=== PATIENT | male | born 1955 | race Caucasian/White ===

== ENCOUNTER → 2018-03-29 | Outpatient (CLI) | payer OTHER ==
--- NOTE | 2018-04-04 12:34 | SLEEPCENT ---
DATE OF PROCEDURE: 03/29/2018 ORDERED BY: Jaxson Gordon Nocturnal polysomnography was performed for the titration of pressure therapy in this patient with obstructive sleep apnea syndrome and apnea-hypopnea index of 31.1. For testing, a [employer] [place] View full face mask of medium size was used and 8 cm of water pressure was initially applied to the circuit and the lights were extinguished. 7 hours and 33 minutes of data were reviewed. There were 341 minutes of sleep identified. Sleep latency was short at 4.5 minutes. Rapid eye movement (REM) latency was short at 67 minutes. Sleep architecture initially showed fragmentation. Improvement was seen after optimal pressure was identified. Overall sleep efficiency was 77.2%. The electrocardiogram showed a sinus rhythm with an average heart rate of 60 beats per minute. Electroencephalogram (EEG) showed normal waveforms for awake and sleep. Respiratory events were best palliated with C-PAP at a pressure of +12. There was some limb activity, mostly early in the study, which did improve after optimal pressure was applied. Limb movement arousal index was 15.3. IMPRESSION: Obstructive sleep apnea syndrome (G47.33). RECOMMENDATION: Nightly use of pressure therapy at 12 cm of water.
== END ==
LOC: M SLEEP 19:21
PROVIDERS: ATTEND Physician Assistant
DX: G47.33 Obstructive sleep apnea (adult) (pediatric) (principal)

== ENCOUNTER 2018-12-19 10:37 | Emergency (ER) | payer OTHER ==
[~2018-12-19] VITALS: Ht 180.3 cm; Wt 94.6 kg
[2018-12-19] MEDS ORDERED: VITA-122 (10:42)
[2018-12-19] MEDS ORDERED: ATOR1TAB19 (10:42)
[2018-12-19] MEDS ORDERED: ASPI81TA85 PO (10:42)
[2018-12-19] MEDS ORDERED: TIZA4TAB4 (10:42)
[2018-12-19] MEDS ORDERED: TRAM50TA2 (10:42)
[2018-12-19 11:32] LABS: BASO % 0.2 % (0.0-1.0); EOS % 0.3 % (0.0-3.0); HEMATOCRIT 46.8 % (42.0-52.0); HEMOGLOBIN 15.3 g/dl (13.5-17.5); LYMPH # 1.2 10^3/uL (1.5-5.0); LYMPH % 9.9 % (24.0-44.0); MEAN CORPUSCULAR HEMOGLOBIN 29.8 pg (27.0-33.0); MEAN CORPUSCULAR HGB CONC 32.7 g/dl (32.0-36.5); MEAN CORPUSCULAR VOLUME 91.2 fl (80.0-96.0); MONO # 0.6 10^3/uL (0.0-0.8); MONO % 5.2 % (0.0-5.0); NEUTROPHILS # 10.3 10^3/uL (1.5-8.5); NEUTROPHILS % 83.9 % (36.0-66.0); PLATELET COUNT, AUTOMATED 203 10^3/uL (150-450); RED BLOOD COUNT 5.13 10^6/uL (4.30-6.10); WHITE BLOOD COUNT 12.3 10^3/uL (4.0-10.0)
[2018-12-19] MEDS ORDERED: NS 1,000 ML IV ONE (11:45)
--- NOTE | 2018-12-19 11:55 | REP ---
Clinical: Right flank pain. Technique: Axial noncontrast images from the lung bases to the pubic symphysis with coronal and sagittal re-formations. Comparison: 08/29/2013. Findings: Moderate acute right-sided obstructive uropathy with perinephric stranding and hydroureteronephrosis secondary to a 3 mm calculus obstructing the proximal ureter (images 84 - 85). 3 mm nonobstructing calculus noted in the mid pole right kidney and 1 mm nonobstructing calculus noted in the upper pole left kidney. Liver, spleen, pancreas, gallbladder, and bilateral adrenal glands are normal. Enteric system without obstruction or acute inflammatory process. Normal terminal ileum and appendix identified in the right lower quadrant. Pelvis demonstrates normal bladder and age appropriate prostate/seminal vesicles. No ascites. No free air. No adenopathy. Abdominal aorta without aneurysm. Musculoskeletal structures without focal osseous abnormality. Lung bases are clear. Impression: 1. Moderate acute right-sided obstructive uropathy with a 3 mm obstructing calculus in the proximal ureter. 3 mm nonobstructing right upper pole calculus and 1 mm nonobstructing left upper pole calculus also identified. Electronically Signed by Jaxson Casillas MD 12/19/2018 11:47 A
[2018-12-19 11:59] LABS: CALCIUM LEVEL 10.1 MG/DL (8.8-10.2); CREATININE FOR GFR 1.34 MG/DL (0.70-1.30); GLOMERULAR FILTRATION RATE 57.5 (>49); POTASSIUM SERUM 4.1 MEQ/L (3.5-5.1)
[2018-12-19] MEDS ORDERED: MACR100C43 PO (12:50)
[2018-12-19] MEDS ORDERED: FLOM0.4C39 PO (12:50)
[2018-12-19] MEDS ORDERED: NORC1TAB7 PO (12:50)
[2018-12-19] MEDS ORDERED: ZOFR4TAB16 PO (12:52)
[2018-12-19] MEDS ORDERED: NORCO, ANEXSIA 5/325MG TABLET (HYDROcodone/ACETAMINOPHEN) PO ONE (13:00)
[2018-12-19] MEDS ORDERED: NITROFURANTOIN (MACROBID) 100 MG CAP PO ONE (13:00)
[2018-12-19] MEDS ORDERED: TAMSULOSIN 0.4 MG CAP PO ONE (13:00)
[2018-12-19 13:04] VITALS: BP 145/85
== END 2018-12-19 13:15 | disposition home or self-care (01) ==
LOC: M ED 10:37
DX: N20.1 Calculus of ureter (principal); N39.0 Urinary tract infection, site not specified; E78.00 Pure hypercholesterolemia, unspecified; Z79.899 Other long term (current) drug therapy; Z79.82 Long term (current) use of aspirin; Z88.0 Allergy status to penicillin

== ENCOUNTER → 2021-09-21 | Outpatient (CLI) | payer OTHER ==
[~2021-09-21] MED LIST: ASPI81TA86 PO; ATOR1TAB19; FLOM0.4C39 PO; MACR100C43 PO; NORC1TAB7 PO; TIZA10TA; TRAM50TA2; VITA-122; ZOFR4TAB16 PO
== END ==
LOC: M WHC 10:39
PROVIDERS: ATTEND Student in an Organized Health Care Education/Training Program
DX: Z87.39 Personal history of other diseases of the musculoskeletal system and connective tissue (principal)

== ENCOUNTER → 2023-12-13 | Outpatient (REF) | LOC: M PLAIMG 11:10 | PROVIDERS: ATTEND Internal Medicine | DX: M54.2 Cervicalgia (principal) ==

== ENCOUNTER → 2024-02-21 | Outpatient (CLI) | payer MEDICARE, OTHER | LOC: M RAD 14:12 | PROVIDERS: ATTEND Physician Assistant | DX: R06.00 Dyspnea, unspecified (principal) ==

== ENCOUNTER → 2024-04-17 | Outpatient (CLI) | payer OTHER, MEDICARE ==
[~2024-04-17] MED LIST changes: +METHACHOLINE KIT (6 VIAL.NEB PREMIX) INH ONE
== END ==
LOC: M CARPUL 10:43
PROVIDERS: ATTEND Physician Assistant
DX: R06.00 Dyspnea, unspecified (principal)
CPT/HCPCS: 94070; 95070; J7674

== ENCOUNTER 2024-11-05 12:57 | Outpatient (RCR) | payer OTHER, MEDICARE ==
[~2024-11-05 12:57] MED LIST changes: -FLOM0.4C39 PO; -METHACHOLINE KIT (6 VIAL.NEB PREMIX) INH ONE; +TAMS-18 PO
== END 2024-11-18 ==
LOC: M ST 12:57
PROVIDERS: ATTEND Otolaryngology
DX: R49.0 Dysphonia (principal)